=== PATIENT | female | born 1985 | race Caucasian/White ===

== ENCOUNTER → 2017-10-18 | Outpatient (CLI) | payer OTHER ==
[~2017-10-18] MED LIST: CYCL10TA9 PO; HYDR-3714 PO; IBP800T PO; MINO90TA9 PO; PRD20T PO; SUMA100T2 PO; [UNRECOGNIZED DRUG - CODE]
--- NOTE | 2017-10-18 16:53 | Diagnostic Imaging Report ---
INDICATION: Anatomical survey. TECHNIQUE: Multiple real-time grayscale images were obtained over the gravid uterus. COMPARISON: None FINDINGS: Mccann gestation is in cephalic position. The placenta is anterior with no abruption or previa. Amniotic fluid volume appeared normal. The cervix measures at least 3.5 cm. The anatomical survey revealed no pathology. The measurements correlate with an average age of 19 weeks 6 days for sonographic date of confinement of 03/04/2018. IMPRESSION: 19 weeks 6 days mccann viable IUP with no pathological finding revealed. Biometrical measurements are as follows: Biparietal 4.6 cm, age 19 weeks 6 days. Head circumference 17.0 cm, age 19 weeks 5 days. Abdominal circumference 14.0 cm, age 19 weeks 3 days. Femur length 3.3 cm, age 20 weeks 3 days. Sonographic estimate age: 19 weeks 6 days. Sonographic estimated date of delivery: 03/08/18. Estimated Weight: 316 gm (+/- 46 gm). LMP percentile: 17%. heart rate: 143 beats per minute. number: 1 of 1. Dictated by: Dictated on workstation # [id number]
== END ==
LOC: RAD 12:46
PROVIDERS: ATTEND Obstetrics & Gynecology
DX: Z34.92 Encounter for supervision of normal pregnancy, unspecified, second trimester (principal); Z3A.19 19 weeks gestation of pregnancy
CPT/HCPCS: 76805

== ENCOUNTER 2018-02-21 18:45 | Inpatient (IN) | payer OTHER ==
[~2018-02-21] VITALS: Ht 177.8 cm; Wt 117.0 kg
--- OUTSIDE RECORDS SUMMARY | 2018-02-21 18:55 | XMS REPORT | Continuity of Care Document ---
Author Author [facility] Organization [facility] Address Unknown Phone Unavailable Allergies Active Description Code Type Severity Reaction Onset Reported/Identified Relationship to Patient Clinical Status Yes No Known Drug Allergies [id number] Drug Allergy Mild N/A 07/11/2009 Medications There is no data. Problems Date Dx Coded Attending Type Code Diagnosis Diagnosed By 10/17/2014 OSVALDO MORRISON MD Ot 625.3 10/17/2014 NATHALY HERNÁNDEZ, NILESH Jones Ot 724.2 LUMBAGO 11/20/2014 OSVALDO MORRISON MD Ot 625.3 03/21/2015 KIM BAXTER DO Ot 278.00 03/21/2015 KIM BAXTER DO Ot 628.0 03/21/2015 KIM BAXTER DO S Ot V13.29 04/12/2016 BRYAN HERNÁNDEZ, HAL Ballesteros Ot N97.8 FEMALE INFERTILITY OF OTHER ORIGIN 04/30/2016 BRYAN HERNÁNDEZ, HAL Ballesteros Ot N97.8 FEMALE INFERTILITY OF OTHER ORIGIN 06/21/2016 OSVALDO MORRISON MD Ot 625.3 DYSMENORRHEA 06/21/2016 KIM BAXTER DO S Ot 278.00 OBESITY, NOS 06/21/2016 KIM BAXTER DO S Ot 628.0 INFERTILITY-ANOVULATION 06/21/2016 KIM BAXTER DO S Ot V13.29 PERSONAL HISTORY GENITAL SYSTEM/OBSTETRI 03/03/2017 OSVALDO MORRISON MD Ot 625.3 DYSMENORRHEA 03/03/2017 KIM BAXTER DO S Ot 278.00 OBESITY, NOS 03/03/2017 KIM BAXTER DO S Ot 628.0 INFERTILITY-ANOVULATION 03/03/2017 KIM BAXTER DO S Ot V13.29 PERSONAL HISTORY GENITAL SYSTEM/OBSTETRI 10/19/2017 KIM BAXTER DO S Ot Z34.92 ENCNTR FOR SUPRVSN OF NORMAL PREG, UNSP, 10/19/2017 KIM BAXTER DO Ot Z3A.19 19 WEEKS GESTATION OF 10/19/2017 KIM BAXTER DO Ot Z34.92 ENCNTR FOR SUPRVSN OF NORMAL PREG, UNSP, 10/19/2017 KIM BAXTER DO Ot Z3A.19 19 WEEKS GESTATION OF 11/03/2017 KIM BAXTER DO Ot Z34.92 ENCNTR FOR SUPRVSN OF NORMAL PREG, UNSP, 11/03/2017 KIM BAXTER DO Ot Z3A.19 19 WEEKS GESTATION OF Procedures There is no data. Results There is no data. Encounters ACCT No. Visit Date/Time Discharge Status Pt. Type Provider Facility Loc./Unit Complaint [id number] 10/18/2017 12:46:00 10/18/2017 23:59:59 CLS Outpatient KIM BAXTER DO [facility] RAD ANATOMY SCAN [id number] 03/30/2016 12:44:00 03/30/2016 23:59:59 CLS Outpatient BRYAN HERNÁNDEZ, HAL Ballesteros [facility] RAD [id number] 03/07/2015 13:54:00 03/07/2015 23:59:59 CLS Outpatient KIM BAXTER DO [facility] RAD HX OF PCOS ANOVULATION [id number] 10/17/2014 07:59:00 10/17/2014 08:51:00 DIS Emergency NATHALY HERNÁNDEZ, NILESH Jones [facility] ER BACK PAIN [id number] 09/26/2014 15:59:00 09/26/2014 23:59:59 CLS Outpatient OSVALDO MORRISON MD [facility] RAD CHRONIC PELVIC PAIN
[2018-02-21] MEDS ORDERED: MINERAL OIL CONCENTRATE 99.9% 15 ML UDC TOP PRN (19:30)
[2018-02-21] MEDS ORDERED: MISOPROSTOL 100 MCG (CYTOTEC) TAB PO NR (19:30)
[2018-02-21 19:45] VITALS: BP 121/78
[2018-02-21] MEDS: D5 LR IV SOLUTION 1,000 ML IV SCH (20:08)
[2018-02-21 20:11] LABS: BASOPHILS % (AUTO) 0 % (0-10); EOSINOPHILS # (AUTO) 0.2 10^3/uL (0.0-0.3); EOSINOPHILS % (AUTO) 1 % (0-10); HEMATOCRIT 34 % (35-52); HEMOGLOBIN 12.3 G/DL (11.5-16.0); LYMPHOCYTES # (AUTO) 2.1 X 10^3 (1.0-4.0); LYMPHOCYTES % (AUTO) 19 % (12-44); MEAN CORPUSCULAR HEMOGLOBIN 30 PG (25-34); MEAN CORPUSCULAR HGB CONC 36 G/DL (32-36); MEAN CORPUSCULAR VOLUME 82 FL (80-99); MEAN PLATELET VOLUME 11.4 FL (7.4-10.4); MONOCYTES # (AUTO) 0.5 X 10^3 (0.0-1.0); MONOCYTES % (AUTO) 4 % (0-12); NEUTROPHILS # (AUTO) 8.4 X 10^3 (1.8-7.8); NEUTROPHILS % (AUTO) 76 % (42-75); PLATELET COUNT 224 10^3/uL (130-400); RED BLOOD COUNT 4.16 10^6/uL (4.35-5.85); RED CELL DISTRIBUTION WIDTH 12.9 % (10.0-14.5); WHITE BLOOD COUNT 11.1 10^3/uL (4.3-11.0)
[2018-02-21 20:52] VITALS: BP 137/85
[2018-02-21 21:21] VITALS: BP 127/74
[2018-02-21 22:22] VITALS: BP 134/72
[2018-02-21 23:22] VITALS: BP 157/81
[2018-02-22] VITALS (60 sets, daily range): BP systolic 116–197; BP diastolic 58–106
[2018-02-22] MEDS: MISOPROSTOL 100 MCG (CYTOTEC) TAB PO SCH ×2 (00:12→05:16)
[2018-02-22] MEDS: D5 LR IV SOLUTION 1,000 ML IV SCH ×2 (01:55→09:39)
[2018-02-22] MEDS: CATHETER FLUSH 10 ML SYR IV SCH ×2 (05:28→14:22)
--- NOTE | 2018-02-22 08:14 | History & Physical-OB ---
OB - Chief Complaint & HPI Date/Time Date of Admission: Date of Admission: Feb 21, 2018 at 6:45 pm Time Seen by Provider: 07:55 Chief Complaint/History OB-Reason for Admission/Chief: Induction of Labor Hx : 1 Hx Para: 0 Expected Date of Delivery: Mar 04, 2018 Gestational Age in Weeks: 38 Gestational Age in Days: 4 Admission Nurse Assessment Rev: Yes History of Labs AB neg Antibody neg RI RPR NR HBsAg NR HIV NR GC neg GBS neg Allergies and Home Medications Allergies Coded Allergies: No Known Drug Allergies (Verified , 07/11/09) Patient Home Medication List Home Medication List Reviewed: Yes OB - History Hx of Present Care: Yes Ultrasounds: Abnormal US findings (oligohydramnios) Obstetrical Complications: None (abnormal quad screen) Medical Complications: None Delivery History Adverse Rxn to Tranfusion: No Patient Past Medical History n/a Social History/Family History HIV/AIDS: Yes Recent Infectious Disease Expo: No Sexually Transmitted Disease: No Alcohol Use: Denies Use Recreational Drug Use: No Immunizations Hepatitis A: Yes Hepatitis B: Yes OB - Admission Exam Physical Exam Vitals: Vital Signs 02/22/18 02/22/18 04:06 06:20 Temp 96.8 Pulse 62 Resp 18 B/P (MAP) 133/79 (97) O2 Delivery Room Air HEENT: NCAT Heart: Rhythm Normal Lungs: Clear Abdomen: Gravid Extremities: Normal Reflexes: Normal Cervical Dilatation: 1cm Effacement: 75% Station: -1 Membranes: Intact Heart Rate: 130's Accelerations: Accelerations Present Decelerations: No Decelerations Short Term Variability: Present Cleaning Machine Operator Variability: Average (6-25) Contractions on Admission: 6-10 Minutes Apart Intensity: Mild Royal Scoring Tool (Modified) Dilation (cm): 1-2cm (1) Effacement (%): 51-79% (2) Descent/Station: -1,0 (2) Cervix Consistency: Soft (2) Cervix Position: Anterior (2) Subtract 1 point for: Nulliparity (-1) Royal Score: 8 Labs Laboratory Tests Test 02/21/18 19:55 Range/Units White Blood Count 11.1 H 4.3-11.0 10^3/uL Red Blood Count 4.16 L 4.35-5.85 10^6/uL Hemoglobin 12.3 11.5-16.0 G/DL Hematocrit 34 L 35-52 % Mean Corpuscular Volume 82 80-99 FL Mean Corpuscular Hemoglobin 30 25-34 PG Mean Corpuscular Hemoglobin Concent 36 32-36 G/DL Red Cell Distribution Width 12.9 10.0-14.5 % Platelet Count 224 130-400 10^3/uL Mean Platelet Volume 11.4 H 7.4-10.4 FL Neutrophils (%) (Auto) 76 H 42-75 % Lymphocytes (%) (Auto) 19 12-44 % Monocytes (%) (Auto) 4 0-12 % Eosinophils (%) (Auto) 1 0-10 % Basophils (%) (Auto) 0 0-10 % Neutrophils # (Auto) 8.4 H 1.8-7.8 X 10^3 Lymphocytes # (Auto) 2.1 1.0-4.0 X 10^3 Monocytes # (Auto) 0.5 0.0-1.0 X 10^3 Eosinophils # (Auto) 0.2 0.0-0.3 10^3/uL Basophils # (Auto) 0.0 0.0-0.1 10^3/uL OB - Assessment/Plan/Diagnosis Assessment Assessment: induction of labor Admission Dx 32 yo @ 38.4 weeks Oligohydramnios Abnormal quad screen GBS neg Admission Status: Inpatient Order (span 2 midnights) Reason for Inpatient Admission: 32 yo @ 38.4 weeks Oligohydramnios Abnormal quad screen GBS neg Plan Plan: Induction Induction Method: per Misoprostol Protocol Discharge Diagnosis Diagnosis: 32 yo @ 38.4 weeks Oligohydramnios Abnormal quad screen GBS neg KIM BAXTER DO Feb 22, 2018 8:14 am
[2018-02-22] MEDS ORDERED: OXYTOCIN/NORMAL SALINE 500 ML IV SCH ×2 (08:43→17:54)
[2018-02-22] MEDS ORDERED: LACTATED RINGERS 1,000 ML IV ONE (11:08)
[2018-02-22] MEDS ORDERED: SUFENTA 0.6MCG/ML BUPIVA 0.125 100 ML ONE (11:09)
[2018-02-22] MEDS ORDERED: LIDOCAINE PF 2% 5 ML (XYLOCAINE) VIAL ONE (11:55)
[2018-02-22] MEDS ORDERED: BUPIVACAINE 0.25% 30 ML (SENSORCAINE) VIAL ONE (11:55)
[2018-02-22] MEDS ORDERED: fentaNYL INJECTION 100 MCG/2 ML AMP ONE (11:56)
[2018-02-22] MEDS ORDERED: LACTATED RINGERS 1,000 ML IV SCH (12:29)
[2018-02-22] MEDS ORDERED: diphenhydrAMINE 50 MG/ML INJ (BENADRYL) IV PRN (12:30)
[2018-02-22] MEDS ORDERED: NALOXONE 0.4 MG/ML 1 ML (NARCAN) VIAL IV PRN (12:30)
[2018-02-22] MEDS ORDERED: EPIDURAL (SUFENTA 0.6MCG/ML BUPIVA 0.125%) 100 ML BAG EPI PRN (12:30)
[2018-02-22] MEDS ORDERED: ONDANSETRON 4 MG/2 ML (SDV) Z0FRAN IV PRN (12:30)
[2018-02-22] MEDS ORDERED: LIDOCAINE/EPI 2% 1:200,00 (XYLOCAINE) 10 ML VIAL ONE (17:25)
--- NOTE | 2018-02-22 17:58 | OB Labor & Delivery Record ---
L&D History Date of Service Date of Service: Feb 22, 2018 History Expected Date of Delivery: Mar 04, 2018 Gestational Age in Weeks: 38 Hx : 1 Hx Para: 0 Complications Events: Oliohydramnios, Routine care (Julius) Abn Quad screen Intrapartal Events: None L&D Stage1 Stage One Onset of Labor - Date: Feb 22, 2018 Monitors and Tracing Monitor Mode: External Heart Rate: 135 Station: 0 Vital Signs VS - Last 72 Hours, by Label 02/21/18 02/21/18 02/21/18 02/21/18 19:45 20:52 21:21 22:22 Temp 97.6 Pulse 66 62 63 55 Resp 18 18 18 18 B/P (MAP) 121/78 (92) 137/85 (102) 127/74 (91) 134/72 (92) 02/21/18 02/21/18 02/22/18 02/22/18 23:00 23:22 00:16 00:22 Temp 97.0 96.4 Pulse 60 68 59 Resp 16 18 16 16 B/P (MAP) 157/81 (106) 141/67 (91) 132/74 (93) 02/22/18 02/22/18 02/22/18 02/22/18 01:22 02:08 04:06 04:08 Temp 96.8 Pulse 72 64 72 70 Resp 16 16 18 18 B/P (MAP) 118/80 (93) 139/80 (99) 169/82 (111) 169/72 (104) O2 Delivery Room Air Room Air Room Air Room Air 02/22/18 02/22/18 02/22/18 02/22/18 04:17 05:17 06:20 07:20 Pulse 56 65 62 57 Resp 18 18 18 18 B/P (MAP) 151/84 (106) 138/84 (102) 133/79 (97) 142/84 (103) O2 Delivery Room Air Room Air Room Air Room Air 02/22/18 02/22/18 02/22/18 02/22/18 07:30 08:20 09:35 09:50 Temp 96.4 Pulse 61 71 65 Resp 18 18 18 B/P (MAP) 157/86 (109) 150/85 (106) 150/84 (106) O2 Delivery Room Air Room Air Room Air 02/22/18 02/22/18 02/22/18 02/22/18 10:05 10:30 10:45 11:00 Pulse 68 60 59 75 Resp 18 18 18 18 B/P (MAP) 167/87 (113) 154/79 (104) 172/96 (121) 159/96 (117) O2 Delivery Room Air Room Air Room Air Room Air 02/22/18 02/22/18 02/22/18 02/22/18 11:15 11:30 11:45 12:00 Pulse 70 61 66 71 Resp 18 18 18 18 B/P (MAP) 197/103 (134) 181/84 (116) 160/85 (110) 160/76 (104) O2 Delivery Room Air Room Air Room Air Room Air 02/22/18 02/22/18 02/22/18 02/22/18 12:02 12:03 12:07 12:10 Pulse 74 69 67 60 Resp 18 18 20 20 B/P (MAP) 150/84 (106) 156/97 (116) 165/106 (125) 155/96 (115) Pulse Ox 100 100 O2 Delivery Room Air Room Air Room Air Room Air 02/22/18 02/22/18 02/22/18 02/22/18 12:13 12:20 12:24 12:30 Temp 97.8 Pulse 57 65 76 57 Resp 18 20 20 18 B/P (MAP) 157/96 (116) 155/89 (111) 139/71 (93) 157/96 (116) Pulse Ox 100 100 100 100 O2 Delivery Room Air Room Air Room Air Room Air 02/22/18 02/22/18 02/22/18 02/22/18 12:35 12:40 13:00 13:15 Pulse 65 76 68 67 Resp 18 18 18 18 B/P (MAP) 122/61 (81) 128/69 (88) 128/66 (86) 132/67 (88) Pulse Ox 100 100 100 100 O2 Delivery Room Air Room Air Room Air Room Air 02/22/18 02/22/18 02/22/18 02/22/18 13:30 13:37 13:45 14:00 Temp 97.2 Pulse 75 64 62 Resp 18 18 18 B/P (MAP) 127/66 (86) 122/58 (79) 124/62 (82) Pulse Ox 100 100 99 O2 Delivery Room Air Room Air Room Air 02/22/18 02/22/18 02/22/18 02/22/18 14:15 14:30 14:45 15:00 Pulse 68 65 64 69 Resp 18 18 18 18 B/P (MAP) 124/62 (82) 125/64 (84) 121/63 (82) 122/70 (87) Pulse Ox 99 99 100 100 O2 Delivery Room Air Room Air Room Air Room Air 02/22/18 02/22/18 02/22/18 15:15 15:30 15:45 Pulse 67 66 63 Resp 18 18 18 B/P (MAP) 146/73 (97) 140/75 (96) 146/73 (97) Pulse Ox 100 100 100 O2 Delivery Room Air Room Air Room Air Rupture of Membranes Spontaneous Ruture of Membrane: No Amniotic Membrane Rupture Time: 0805 Amniotic Membrane Fluid Desc.: Clear Vaginal Bleeding Description: Normal Show Induction/Anesthesia Epidural Cath Placement - Time: 1219 L&D Stage2 Stage Two Stage II Date: Feb 22, 2018 Monitors and Tracing Monitor Mode: External Heart Rate: 135 Monitor Accelerations: Uniform Monitor Decelerations: Variable Assurance Senior Variability: Average (6-10) Short Term Variability: Present Position: Right Occiput Anterior Presentation: Vertex Cord Descript/Complications Cord Vessel Description: 3 Vessels Delivery Type Infant Delivery Method: Spontaneous Vaginal Anterior Shoulder: Left Episiotomy/Perineal Laceration Laceraction(s)/Extensions: Yes Episiotomy Description: Right Mediolateral Degree (describe repair) RML repaired in usual fashion using 3-0 and 2-0 vicryl suture Condition of Infant Delivery 1 minute Comment: 8 5 minute Comment: 9 Notes Live female infant weight 5lbs 1 oz Condition of Condition of Infant: Living Exam: No Observed Abnormalities Resuscitation Resuscitation: N/A - Spontaneous Resp L&D Stage3 Stage Three Stage III Date: Feb 22, 2018 Pictocin Pitocin Administration mu/min: 12 Pitocin ml/hr: 12 Pitocin Administration Comment: pitocin increased wide open at delivery of placenta Placenta Delivery Placenta Delivery: Spontaneous Delivery Summary Summary Estimated blood loss (mL): 300 Attending at delivery: Kim Baxter DO Condition of Delivery Examined: Cervix Examined, Uterus Explored Post Hemorrhage: No Condition of Mother stable Condition of Infant (s) stable KIM BAXTER DO Feb 22, 2018 5:57 pm
[2018-02-22] MEDS ORDERED: BENZOCAINE/MENTHOL (DERMOPLAST) 56 ML CAN TP PRN (18:00)
[2018-02-22] MEDS ORDERED: DIBUCAINE (NUPERCAINAL) 1% OINT 30 GM TOP PRN (18:00)
[2018-02-22] MEDS ORDERED: MEASLES,MUMPS,RUBELLA 1 EA INJ SQ ONE (18:00)
[2018-02-22] MEDS ORDERED: TETANUS,DIPTH,PERTUSS P/F (BOOSTRIX) 0.5 ML VIAL IM ONE (18:00)
[2018-02-22] MEDS: IBUPROFEN 600 MG (MOTRIN) TAB PO SCH (20:01)
[2018-02-22] MEDS: HYDROcodone/APAP 5 MG/325 MG (LORTAB) TAB PO PRN (20:11)
[2018-02-23] MEDS: WITCH HAZEL(TUCKS) 40 EA JAR TOP PRN ×2 (00:11→23:24)
[2018-02-23 00:22] VITALS: BP 142/81
[2018-02-23] MEDS: DOCUSATE SODIUM 100 MG (COLACE) CAP PO SCH ×3 (00:22→21:08)
[2018-02-23 04:54] VITALS: BP 127/86
[2018-02-23] MEDS: IBUPROFEN 600 MG (MOTRIN) TAB PO SCH ×5 (04:54→23:23)
[2018-02-23 05:49] LABS: BASOPHILS % (AUTO) 0 % (0-10); EOSINOPHILS # (AUTO) 0.1 10^3/uL (0.0-0.3); EOSINOPHILS % (AUTO) 1 % (0-10); HEMATOCRIT 33 % (35-52); HEMOGLOBIN 11.5 G/DL (11.5-16.0); LYMPHOCYTES # (AUTO) 2.2 X 10^3 (1.0-4.0); LYMPHOCYTES % (AUTO) 20 % (12-44); MEAN CORPUSCULAR HEMOGLOBIN 30 PG (25-34); MEAN CORPUSCULAR HGB CONC 35 G/DL (32-36); MEAN CORPUSCULAR VOLUME 84 FL (80-99); MEAN PLATELET VOLUME 11.3 FL (7.4-10.4); MONOCYTES # (AUTO) 0.5 X 10^3 (0.0-1.0); MONOCYTES % (AUTO) 5 % (0-12); NEUTROPHILS # (AUTO) 8.2 X 10^3 (1.8-7.8); NEUTROPHILS % (AUTO) 74 % (42-75); PLATELET COUNT 184 10^3/uL (130-400); RED BLOOD COUNT 3.89 10^6/uL (4.35-5.85); RED CELL DISTRIBUTION WIDTH 12.9 % (10.0-14.5)
--- NOTE | 2018-02-23 07:20 | Discharge Inst-Women's Service ---
Discharge Inst-Women's Serv Depart Medication/Instructions New, Converted or Re-Newed RX: RX on Chart Consults/Follow Up Additional Follow Up: Yes Orders/Referrals Dr. Baxter in 6 weeks Activity Activity: Activity as Tolerated Driving Instructions: No Driving for 1 Week NO SMOKING: NO SMOKING Nothing Inside Vagina: No Douching, No [place], No Tampons Diet Discharge Diet: No Restrictions Symptoms to Report to : Bleeding Excessive, Pain Increased, Fever Over 101 Degrees F, Vaginal Bleeding Increase, Questions/Concerns For Any Problems or Questions: Contact Your Physician Skin/Wound Care Bathing Instructions: Shower (x 2 weeks or sitz baths) KIM BAXTER DO Feb 23, 2018 7:20 am
[2018-02-23] MEDS ORDERED: DOCU100C37 PO (07:22)
[2018-02-23] MEDS ORDERED: Benzocaine/Menthol TP (07:22)
[2018-02-23] MEDS ORDERED: ACHD5005 PO (07:22)
[2018-02-23] MEDS ORDERED: DIBU30OI TOP (07:22)
[2018-02-23] MEDS ORDERED: PNV1TABL67 PO (07:22)
[2018-02-23] MEDS ORDERED: IBUP-1773 PO (07:22)
[2018-02-23] MEDS ORDERED: FERR325T18 PO (07:22)
--- NOTE | 2018-02-23 07:23 | Postpartum Progress Note ---
Note Note Day # 1 Subjective: Patient is without complaints. Ambulating, voiding. Tolerating a regular diet without nausea or vomiting. Normal lochia. Pain is well controlled with oral pain medications. Objective: Vital Sign - Last 24 Hours 02/22/18 02/22/18 02/22/18 02/22/18 07:30 08:20 09:35 09:50 Temp 96.4 Pulse 61 71 65 Resp 18 18 18 B/P (MAP) 157/86 (109) 150/85 (106) 150/84 (106) O2 Delivery Room Air Room Air Room Air 02/22/18 02/22/18 02/22/18 02/22/18 10:05 10:30 10:45 11:00 Pulse 68 60 59 75 Resp 18 18 18 18 B/P (MAP) 167/87 (113) 154/79 (104) 172/96 (121) 159/96 (117) O2 Delivery Room Air Room Air Room Air Room Air 02/22/18 02/22/18 02/22/18 02/22/18 11:15 11:30 11:45 12:00 Pulse 70 61 66 71 Resp 18 18 18 18 B/P (MAP) 197/103 (134) 181/84 (116) 160/85 (110) 160/76 (104) O2 Delivery Room Air Room Air Room Air Room Air 02/22/18 02/22/18 02/22/18 02/22/18 12:02 12:03 12:07 12:10 Pulse 74 69 67 60 Resp 18 18 20 20 B/P (MAP) 150/84 (106) 156/97 (116) 165/106 (125) 155/96 (115) Pulse Ox 100 100 O2 Delivery Room Air Room Air Room Air Room Air 02/22/18 02/22/18 02/22/18 02/22/18 12:13 12:20 12:24 12:30 Temp 97.8 Pulse 57 65 76 57 Resp 18 20 20 18 B/P (MAP) 157/96 (116) 155/89 (111) 139/71 (93) 157/96 (116) Pulse Ox 100 100 100 100 O2 Delivery Room Air Room Air Room Air Room Air 02/22/18 02/22/18 02/22/18 02/22/18 12:35 12:40 13:00 13:15 Pulse 65 76 68 67 Resp 18 18 18 18 B/P (MAP) 122/61 (81) 128/69 (88) 128/66 (86) 132/67 (88) Pulse Ox 100 100 100 100 O2 Delivery Room Air Room Air Room Air Room Air 02/22/18 02/22/18 02/22/18 02/22/18 13:30 13:37 13:45 14:00 Temp 97.2 Pulse 75 64 62 Resp 18 18 18 B/P (MAP) 127/66 (86) 122/58 (79) 124/62 (82) Pulse Ox 100 100 99 O2 Delivery Room Air Room Air Room Air 02/22/18 02/22/18 02/22/18 02/22/18 14:15 14:30 14:45 15:00 Pulse 68 65 64 69 Resp 18 18 18 18 B/P (MAP) 124/62 (82) 125/64 (84) 121/63 (82) 122/70 (87) Pulse Ox 99 99 100 100 O2 Delivery Room Air Room Air Room Air Room Air 02/22/18 02/22/18 02/22/18 02/22/18 15:15 15:30 15:45 16:00 Pulse 67 66 63 73 Resp 18 18 18 18 B/P (MAP) 146/73 (97) 140/75 (96) 146/73 (97) Pulse Ox 100 100 100 100 O2 Delivery Room Air Room Air Room Air Room Air 02/22/18 02/22/18 02/22/18 02/22/18 16:15 16:25 16:30 16:45 Temp 97.4 Pulse 69 65 73 Resp 18 18 18 B/P (MAP) 150/85 (106) 170/80 (110) 161/78 (105) Pulse Ox 100 100 98 O2 Delivery Room Air Room Air Room Air 02/22/18 02/22/18 02/22/18 02/22/18 17:00 17:15 17:30 18:00 Pulse 81 81 81 85 Resp 18 18 18 18 B/P (MAP) 175/81 (112) 177/89 (118) 161/89 (113) 122/60 (80) Pulse Ox 100 100 100 O2 Delivery Room Air Room Air Room Air Room Air 4/4/18 4/4/18 4/4/18 4/4/18 18:15 18:30 18:45 19:00 Pulse 73 75 83 90 Resp 18 B/P (MAP) 116/58 (77) 120/58 (78) 136/64 (88) 149/65 (93) O2 Delivery Room Air Room Air Room Air Room Air 02/22/18 02/22/18 02/22/18 02/22/18 20:00 20:15 20:45 21:15 Temp 98.5 98.0 Pulse 93 78 69 73 Resp 18 B/P (MAP) 123/76 (92) 130/70 (90) 124/67 (86) 132/59 (83) O2 Delivery Room Air Room Air Room Air Room Air 02/22/18 02/22/18 02/23/18 02/23/18 21:45 22:15 00:22 04:54 Temp 97.5 98.2 98.4 Pulse 87 75 70 72 Resp 18 B/P (MAP) 132/74 (93) 143/73 (96) 142/81 (101) 127/86 (100) Pulse Ox 100 100 O2 Delivery Room Air Room Air Room Air Room Air Intake and Output 02/22/18 02/22/18 02/23/18 15:00 23:00 07:00 Intake Total 1000 ml Balance 1000 ml Laboratory Tests Test 02/23/18 05:15 Range/Units White Blood Count 11.0 4.3-11.0 10^3/uL Red Blood Count 3.89 L 4.35-5.85 10^6/uL Hemoglobin 11.5 11.5-16.0 G/DL Hematocrit 33 L 35-52 % Mean Corpuscular Volume 84 80-99 FL Mean Corpuscular Hemoglobin 30 25-34 PG Mean Corpuscular Hemoglobin Concent 35 32-36 G/DL Red Cell Distribution Width 12.9 10.0-14.5 % Platelet Count 184 130-400 10^3/uL Mean Platelet Volume 11.3 H 7.4-10.4 FL Neutrophils (%) (Auto) 74 42-75 % Lymphocytes (%) (Auto) 20 12-44 % Monocytes (%) (Auto) 5 0-12 % Eosinophils (%) (Auto) 1 0-10 % Basophils (%) (Auto) 0 0-10 % Neutrophils # (Auto) 8.2 H 1.8-7.8 X 10^3 Lymphocytes # (Auto) 2.2 1.0-4.0 X 10^3 Monocytes # (Auto) 0.5 0.0-1.0 X 10^3 Eosinophils # (Auto) 0.1 0.0-0.3 10^3/uL Basophils # (Auto) 0.0 0.0-0.1 10^3/uL Physical Exam: General - Alert and oriented, no apparent distress Abdomen - Soft, appropriately tender to palpation, non-distended, fundus firm at umbilicus Extremities - no edema, negative Pao's bilaterally Assessment: PPD 1 NVD Oligohydramnios Plan: Routine care. Encourage breast feeding. Encourage ambulation. Ferrous sulfate supplementation. Plan for discharge tomorrow Vitals - Labs Vital Signs - I&O Vital Signs Date Time Temp Pulse Resp B/P (MAP) Pulse Ox O2 Delivery O2 Flow Rate FiO2 02/23/18 04:54 98.4 72 18 127/86 (100) 100 Room Air 02/23/18 00:22 98.2 70 18 142/81 (101) 100 Room Air 02/22/18 22:15 97.5 75 18 143/73 (96) Room Air 02/22/18 21:45 87 18 132/74 (93) Room Air 02/22/18 21:15 98.0 73 18 132/59 (83) Room Air 02/22/18 20:45 69 18 124/67 (86) Room Air 02/22/18 20:15 78 18 130/70 (90) Room Air 02/22/18 20:00 98.5 93 18 123/76 (92) Room Air 02/22/18 19:00 90 18 149/65 (93) Room Air 02/22/18 18:45 83 18 136/64 (88) Room Air 02/22/18 18:30 75 18 120/58 (78) Room Air 02/22/18 18:15 73 18 116/58 (77) Room Air 02/22/18 18:00 85 18 122/60 (80) Room Air 02/22/18 17:30 81 18 161/89 (113) 100 Room Air 02/22/18 17:15 81 18 177/89 (118) 100 Room Air 02/22/18 17:00 81 18 175/81 (112) 100 Room Air 02/22/18 16:45 73 18 161/78 (105) 98 Room Air 02/22/18 16:30 65 18 170/80 (110) 100 Room Air 02/22/18 16:25 97.4 02/22/18 16:15 69 18 150/85 (106) 100 Room Air 02/22/18 16:00 73 18 100 Room Air 02/22/18 15:45 63 18 146/73 (97) 100 Room Air 02/22/18 15:30 66 18 140/75 (96) 100 Room Air 02/22/18 15:15 67 18 146/73 (97) 100 Room Air 02/22/18 15:00 69 18 122/70 (87) 100 Room Air 02/22/18 14:45 64 18 121/63 (82) 100 Room Air 02/22/18 14:30 65 18 125/64 (84) 99 Room Air 02/22/18 14:15 68 18 124/62 (82) 99 Room Air 02/22/18 14:00 62 18 124/62 (82) 99 Room Air 02/22/18 13:45 64 18 122/58 (79) 100 Room Air 02/22/18 13:37 97.2 02/22/18 13:30 75 18 127/66 (86) 100 Room Air 02/22/18 13:15 67 18 132/67 (88) 100 Room Air 02/22/18 13:00 68 18 128/66 (86) 100 Room Air 02/22/18 12:40 76 18 128/69 (88) 100 Room Air 02/22/18 12:35 65 18 122/61 (81) 100 Room Air 02/22/18 12:30 97.8 57 18 157/96 (116) 100 Room Air 02/22/18 12:24 76 20 139/71 (93) 100 Room Air 02/22/18 12:20 65 20 155/89 (111) 100 Room Air 02/22/18 12:13 57 18 157/96 (116) 100 Room Air 02/22/18 12:10 60 20 155/96 (115) 100 Room Air 02/22/18 12:07 67 20 165/106 (125) 100 Room Air 02/22/18 12:03 69 18 156/97 (116) Room Air 02/22/18 12:02 74 18 150/84 (106) Room Air 02/22/18 12:00 71 18 160/76 (104) Room Air 02/22/18 11:45 66 18 160/85 (110) Room Air 02/22/18 11:30 61 18 181/84 (116) Room Air 02/22/18 11:15 70 18 197/103 (134) Room Air 02/22/18 11:00 75 18 159/96 (117) Room Air 02/22/18 10:45 59 18 172/96 (121) Room Air 02/22/18 10:30 60 18 154/79 (104) Room Air 02/22/18 10:05 68 18 167/87 (113) Room Air 02/22/18 09:50 65 18 150/84 (106) Room Air 02/22/18 09:35 71 18 150/85 (106) Room Air 02/22/18 08:20 61 18 157/86 (109) Room Air 02/22/18 07:30 96.4 I & O 02/23/18 07:00 Intake Total 1000 ml Balance 1000 ml Labs Laboratory Tests 02/23/18 05:15: White Blood Count 11.0, Red Blood Count 3.89L, Hemoglobin 11.5, Hematocrit 33L, Mean Corpuscular Volume 84, Mean Corpuscular Hemoglobin 30, Mean Corpuscular Hemoglobin Concent 35, Red Cell Distribution Width 12.9, Platelet Count 184, Mean Platelet Volume 11.3H, Neutrophils (%) (Auto) 74, Lymphocytes (%) (Auto) 20 , Monocytes (%) (Auto) 5, Eosinophils (%) (Auto) 1, Basophils (%) (Auto) 0, Neutrophils # (Auto) 8.2H, Lymphocytes # (Auto) 2.2, Monocytes # (Auto) 0.5, Eosinophils # (Auto) 0.1, Basophils # (Auto) 0.0 KIM BAXTER DO Feb 23, 2018 7:23 am
[2018-02-23 09:45] VITALS: BP 128/86
[2018-02-23] MEDS: PRENATAL VITAMIN 1 EA TAB PO SCH (10:27)
[2018-02-23] MEDS: FERROUS SULF 325 MG (IRON) TAB PO SCH (10:27)
[2018-02-23 12:30] VITALS: BP 128/86
--- NOTE | 2018-02-23 12:50 | Anesthesia-Regional Post-Op ---
Regional Patient Condition Mental Status: Alert, Oriented x3 Circulation: Same as Pre-Op Headache: Absent Sensation: Full Recovery Motor Block: Absent Post Op Complications Complications None Follow Up Care/Instructions Patient Instructions None needed. Anesthesia/Patient Condition Patient is doing well, no complaints, stable vital signs, no apparent adverse anesthesia problems. No complications reported per nursing. MARCOS ALLEN CRNA Feb 23, 2018 12:50
[2018-02-23] MEDS: HYDROcodone/APAP 5 MG/325 MG (LORTAB) TAB PO PRN ×2 (14:42→23:25)
[2018-02-23 17:00] VITALS: BP 135/87
[2018-02-23] MEDS: CATHETER FLUSH 10 ML SYR IV SCH ×4 (19:44→19:46)
[2018-02-23] MEDS: D5 LR IV SOLUTION 1,000 ML IV SCH ×2 (19:46→19:47)
[2018-02-23 23:38] VITALS: BP 136/89
[2018-02-24] MEDS: IBUPROFEN 600 MG (MOTRIN) TAB PO SCH ×3 (05:42→18:20)
[2018-02-24] MEDS: HYDROcodone/APAP 5 MG/325 MG (LORTAB) TAB PO PRN (05:47)
[2018-02-24 05:54] VITALS: BP 136/94
[2018-02-24 09:00] VITALS: BP 148/85
--- NOTE | 2018-02-24 09:15 | Postpartum Progress Note ---
Note Note Day # 2 Subjective: Patient is without complaints. Ambulating, voiding. Tolerating a regular diet without nausea or vomiting. Normal lochia. Pain is well controlled with oral pain medications. Attempting to breastfeed Objective: Vital Sign - Last 24 Hours 02/23/18 02/23/18 02/23/18 02/23/18 09:45 12:30 17:00 23:38 Temp 98.4 98.0 98.3 97.7 Pulse 81 72 67 76 Resp 16 20 16 18 B/P (MAP) 128/86 (100) 128/86 (100) 135/87 (103) 136/89 (105) Pulse Ox 100 100 100 100 O2 Delivery Room Air Room Air Room Air Room Air 02/24/18 05:54 Temp 96.8 Pulse 72 Resp 18 B/P (MAP) 136/94 (108) Pulse Ox 100 O2 Delivery Room Air Physical Exam: General - Alert and oriented, no apparent distress Abdomen - Soft, appropriately tender to palpation, non-distended, fundus firm at umbilicus Extremities - no edema, negative Pao's bilaterally Assessment: PPD 2 NVD Plan: Routine care. Encourage breast feeding. Encourage ambulation. Ferrous sulfate supplementation. Plan for discharge today Vitals - Labs Vital Signs - I&O Vital Signs Date Time Temp Pulse Resp B/P (MAP) Pulse Ox O2 Delivery O2 Flow Rate FiO2 02/24/18 05:54 96.8 72 18 136/94 (108) 100 Room Air 02/23/18 23:38 97.7 76 18 136/89 (105) 100 Room Air 02/23/18 17:00 98.3 67 16 135/87 (103) 100 Room Air 02/23/18 12:30 98.0 72 20 128/86 (100) 100 Room Air 02/23/18 09:45 98.4 81 16 128/86 (100) 100 Room Air KIM BAXTER DO Feb 24, 2018 9:15 am
[2018-02-24] MEDS: PRENATAL VITAMIN 1 EA TAB PO SCH (09:23)
[2018-02-24] MEDS: FERROUS SULF 325 MG (IRON) TAB PO SCH (09:24)
[2018-02-24] MEDS: DOCUSATE SODIUM 100 MG (COLACE) CAP PO SCH (09:24)
[2018-02-24 12:45] VITALS: BP 128/85
[2018-02-24 18:00] VITALS: BP 135/87
[2018-02-24 20:00] VITALS: BP 135/87
== END 2018-02-24 20:00 | disposition home or self-care (01) | DRG 775 ==
LOC: LDRP 18:45
PROVIDERS: ADMIT Obstetrics & Gynecology; ATTEND Obstetrics & Gynecology
PROC: 10E0XZZ Delivery of Products of Conception, External Approach (ICD-10-PCS; principal; 2018-02-22)
PROC: 0W8NXZZ Division of Female Perineum, External Approach (ICD-10-PCS; 2018-02-22)
DX: O41.03X0 Oligohydramnios, third trimester, not applicable or unspecified (principal); O28.9 Unspecified abnormal findings on antenatal screening of mother; Z3A.38 38 weeks gestation of pregnancy; Z37.0 Single live birth
CPT/HCPCS: 36415; 83033; 85025; 86850; 86900; 86901

== ENCOUNTER → 2020-07-09 | Outpatient (CLI) | payer OTHER ==
[~2020-07-09] MED LIST changes: +ACHD5005 PO; +Benzocaine/Menthol TP; +DIBU30OI TOP; +DOCU100C37 PO; +FERR325T18 PO; +IBUP-1773 PO; +PNV1TABL67 PO
--- NOTE | 2020-07-10 11:15 | Diagnostic Imaging Report ---
INDICATION: survey. TECHNIQUE: Multiple real-time grayscale images were obtained over the gravid uterus. COMPARISON: None FINDINGS: There is a single live fetus in a cephalic presentation. heart rate was recorded at 136 bpm. Placenta is posterior. Amniotic fluid index is 13.3 cm. Cervical length is 5.5 cm. survey demonstrates kidneys, bladder and stomach to be unremarkable. brains are unremarkable. The four-chambered heart view is limited. Cord insertion is also somewhat limited due to position and maternal body habitus. There is a three-vessel cord present. spine is unremarkable. Biometrical measurements are as follows: Biparietal 4.83 cm, age 20 weeks 5 days. Head circumference 18.13 cm, age 20 weeks 4 days. Abdominal circumference 14.92 cm, age 20 weeks 2 days. Femur length 3.53 cm, age 21 weeks 2 days. Sonographic estimate age: 20 weeks 5 days. Sonographic estimated date of delivery: 11/21/2020. Estimated Weight: 366 gm (+/- 53 gm). LMP percentile: 72%. heart rate: 136 beats per minute. number: 1 of 1. IMPRESSION: Single live IUP 20 weeks 5 days gestational age with estimated date of confinement sonographically of 11/21/2020. survey is unremarkable, although the four-chamber heart view, cord insertion as well as nose and lips evaluation was limited due to position and maternal body habitus. Dictated by: Dictated on workstation # [id number]
== END ==
LOC: RAD 11:36
PROVIDERS: ATTEND Nurse Practitioner Women's Health
DX: Z34.92 Encounter for supervision of normal pregnancy, unspecified, second trimester (principal); Z3A.20 20 weeks gestation of pregnancy
CPT/HCPCS: 76805

== ENCOUNTER 2020-11-18 06:15 | Inpatient (IN) | payer OTHER ==
[~2020-11-18] VITALS: Ht 177.9 cm; Wt 130.9 kg
[2020-11-18] VITALS (38 sets, daily range): BP systolic 122–190; BP diastolic 58–101
--- NOTE | 2020-11-18 06:22 | NUR ---
SUSAN TOUSSAINT presented to unit via ambulation from ED, accompanied by s.o. for induction of labor. SUSAN TOUSSAINT weighed, gowned, voided, and to bed. EFHM and TOCO applied, VS taken. SUSAN TOUSSAINT oriented to bed controls, call light, TV, heat, and A/C controls.
--- NOTE | 2020-11-18 07:49 | History & Physical-OB ---
OB - Chief Complaint & HPI Date/Time Date of Admission: Date of Admission: Nov 18, 2020 at 06:15 Date seen by a Provider: Nov 18, 2020 Time Seen by a Provider: 07:45 Chief Complaint/History OB-Reason for Admission/Chief: Induction of Labor Hx : 2 Hx Para: 1 Expected Date of Delivery: Nov 25, 2020 Gestational Age in Weeks: 39 Gestational Age in Days: 0 Admission Nurse Assessment Rev: Yes History of Labs Abnormal quad, normal FFC DNA Allergies and Home Medications Allergies Coded Allergies: No Known Drug Allergies (Verified , 07/11/09) Home Medications Dibucaine 30 Gm Oint, 0 GM TOP UD PRN for PAIN- SEE INSTRUCTIONS Prescribed by: KIM BAXTER on 02/23/18721 Docusate Sodium 100 Mg Capsule, 100 MG PO BID PRN for CONSTIPATION-1ST LINE Prescribed by: KIM BAXTER on 02/23/18721 Ferrous Sulfate 325 Mg Tablet, 325 MG PO DAILY@0700 Prescribed by: KIM BAXTER on 02/23/18721 Hydrocodone Bit/Acetaminophen 1 Tab Tab, 1-2 TAB PO Q4H PRN for PAIN-MODERATE Prescribed by: KIM BAXTER on 02/23/18721 Ibuprofen 600 Mg Tablet, 600 MG PO Q6H Prescribed by: KIM BAXTER on 02/23/18721 Pnv with Ca,No.72/Iron/FA 1 Each Tablet, 1 EA PO DAILY@0700 Prescribed by: KIM BAXTER on 02/23/18721 [Benzocaine/Menthol] 56 ML AEROSOL, 56 ML TP UD PRN for PAIN- SEE INSTRUCTIONS EXTERNAL USE ONLY Prescribed by: KIM BAXTER on 02/23/18721 Patient Home Medication List Home Medication List Reviewed: Yes OB - History Hx of Present Care: Yes Ultrasounds: Normal mid trimester US Obstetrical Complications: None Medical Complications: None Delivery History Adverse Rxn to Tranfusion: No Patient Past Medical History n/a Social History/Family History HIV/AIDS: Yes Sexually Transmitted Disease: No Immunizations Hepatitis A: Yes Hepatitis B: Yes OB - Admission Exam Physical Exam HEENT: NCAT Heart: Rhythm Normal Lungs: Clear Abdomen: Gravid Extremities: Normal Reflexes: Normal Cervical Dilatation: 3cm Effacement: 75% Station: 0 Membranes: Intact Heart Rate: 130's Accelerations: Accelerations Present Decelerations: No Decelerations Short Term Variability: Present Geospatial Developer Variability: Average (6-25) Contractions on Admission: 6-10 Minutes Apart Intensity: Mild OB - Assessment/Plan/Diagnosis Assessment Assessment: induction of labor Admission Dx 35 yo @ 39 weeks AMA Abnormal quad, normal FFC DNA GHTN Admission Status: Inpatient Order (span 2 midnights) Reason for Inpatient Admission: IOL at 39 weeks Plan Plan: Induction Induction Method: per Pitocin Protocol KIM BAXTER DO Nov 18, 2020 07:49
[2020-11-18] MEDS ORDERED: D5 LR IV SOLUTION 1,000 ML IV SCH (08:15)
[2020-11-18] MEDS ORDERED: LIDOCAINE/EPI 2% 1:200,00 (XYLOCAINE) 10 ML VIAL INJ PRN (08:15)
[2020-11-18] MEDS ORDERED: MINERAL OIL CONCENTRATE 99.9% 15 ML UDC TOP PRN (08:15)
[2020-11-18] MEDS ORDERED: D5 LR IV SOLUTION 1,000 ML IV ONE (08:18)
[2020-11-18] MEDS ORDERED: OXYTOCIN PRE-MIX DRIP 500 ML IV ONE (08:18)
[2020-11-18 08:23] LABS: BASOPHILS % (AUTO) 0 % (0-10); EOSINOPHILS # (AUTO) 0.1 10^3/uL (0.0-0.3); EOSINOPHILS % (AUTO) 1 % (0-10); HEMATOCRIT 38 % (35-52); HEMOGLOBIN 12.9 g/dL (11.5-16.0); LYMPHOCYTES # (AUTO) 1.6 10^3/uL (1.0-4.0); LYMPHOCYTES % (AUTO) 17 % (12-44); MEAN CORPUSCULAR HEMOGLOBIN 29 pg (25-34); MEAN CORPUSCULAR HGB CONC 34 g/dL (32-36); MEAN CORPUSCULAR VOLUME 85 fL (80-99); MEAN PLATELET VOLUME 11.9 fL (9.0-12.2); MONOCYTES # (AUTO) 0.5 10^3/uL (0.0-1.0); MONOCYTES % (AUTO) 5 % (0-12); NEUTROPHILS # (AUTO) 7.1 10^3/uL (1.8-7.8); NEUTROPHILS % (AUTO) 76 % (42-75); PLATELET COUNT 190 10^3/uL (130-400); WHITE BLOOD COUNT 9.3 10^3/uL (4.3-11.0)
[2020-11-18 08:24] LABS: CLARITY,URINE SL CLOUDY; COLOR,URINE AMBER; GLUCOSE, URINE (UA) NEGATIVE (NEGATIVE); KETONES,URINE TRACE (NEGATIVE); LEUKOCYTE ESTERASE ,URINE 2+ (NEGATIVE); NITRITE,URINE NEGATIVE (NEGATIVE); PH,URINE 6.5 (5-9); PROTEIN,URINE 2+ (NEGATIVE)
[2020-11-18] MEDS: OXYTOCIN PRE-MIX DRIP 500 ML IV SCH ×2 (08:34→13:45)
[2020-11-18 08:36] LABS: AMORPHOUS SEDIMENT,UR FEW AMOR URATES /LPF; BACTERIA,URINE FEW /HPF; BILIRUBIN,URINE 1+ (NEGATIVE); WBC,URINE 50-100 /HPF; YEAST,URINE FEW /HPF
[2020-11-18 08:38] LABS: CALCIUM OXALATE CRYSTALS,UR MODERATE /LPF
[2020-11-18] MEDS ORDERED: fentaNYL 2 mcg/ml BUPIVA 0.125 100 ML ONE (09:30)
[2020-11-18] MEDS ORDERED: BUPIVACAINE 0.25% 30 ML (SENSORCAINE) VIAL ONE (10:07)
[2020-11-18] MEDS ORDERED: fentaNYL INJECTION 100 MCG/2 ML AMP ONE (10:07)
[2020-11-18] MEDS ORDERED: ONDANSETRON 4 MG/2 ML (SDV) Z0FRAN IV PRN (10:15)
[2020-11-18] MEDS ORDERED: LACTATED RINGERS 1,000 ML IV ONE (10:15)
[2020-11-18] MEDS ORDERED: NALOXONE 0.4 MG/ML 1 ML (NARCAN) VIAL IV PRN (10:15)
[2020-11-18] MEDS ORDERED: diphenhydrAMINE 50 MG/ML INJ (BENADRYL) IV PRN (10:15)
[2020-11-18] MEDS ORDERED: CATHETER FLUSH 10 ML SYR IV PRN (10:15)
[2020-11-18] MEDS ORDERED: fentaNYL 2 mcg/ml BUPIVA 0.125 100 ML IV SCH (10:15)
--- NOTE | 2020-11-18 10:20 | NUR ---
here for epidural placement. Procedure explained, consent reviewed and signed by anesthesia. Questions answered to patient's satisfaction. Time out taken to verify correct patient/procedure. Patient up to side of bed, assisted into sitting position. Betadine prep done x3 and sterile drape applied. Local done, see anesthesia record. Test dose given, see anesthesia record for drug and dosage. Epidural catheter secured in place. Epidural placement complete. Assisted back into bed, monitors adjusted. Epidural dosed, see anesthesia record. Epidural of Sufenta/Bupvicaine @__12____cc/hr stated per pump. Patient tolerated procedure well.
[2020-11-18] MEDS ORDERED: BENZOCAINE/MENTHOL (DERMOPLAST) 60 ML CAN TP ONE (12:31)
[2020-11-18] MEDS ORDERED: IBUPROFEN 600 MG (MOTRIN) TAB PO ONE (13:34)
[2020-11-18] MEDS ORDERED: OXYTOCIN PRE-MIX DRIP 500 ML IV SCH (13:45)
[2020-11-18] MEDS ORDERED: MEASLES,MUMPS,RUBELLA 1 EA INJ SQ ONE (13:45)
[2020-11-18] MEDS ORDERED: BENZOCAINE/MENTHOL (DERMOPLAST) 60 ML CAN TP PRN (13:45)
[2020-11-18] MEDS ORDERED: TETANUS,DIPTH,PERTUSS P/F (BOOSTRIX) 0.5 ML VIAL IM ONE (13:45)
[2020-11-18] MEDS ORDERED: WITCH HAZEL(TUCKS) 40 EA JAR TOP PRN (13:45)
[2020-11-18] MEDS ORDERED: HYDROcodone/APAP 5 MG/325 MG (LORTAB) TAB PO PRN (13:45)
[2020-11-18] MEDS: IBUPROFEN 600 MG (MOTRIN) TAB PO SCH ×2 (13:46→19:38)
--- NOTE | 2020-11-18 13:46 | OB Labor & Delivery Record ---
L&D History Date of Service Date of Service: Nov 18, 2020 History Expected Date of Delivery: Nov 25, 2020 Gestational Age in Weeks: 39 Hx : 2 Hx Para: 1 Complications Events: Routine care Operative Indications (Cesarea: N/A-Vaginal Delivery Intrapartal Events: None L&D Stage1 Stage One Onset of Labor - Date: Nov 18, 2020 Monitors and Tracing Monitor Mode: External Heart Rate: 115 Monitor Accelerations: Uniform Monitor Decelerations: None Station: -3 Nursing Home Variability: Average (6-10) Short Term Variability: Present Presentation: Vertex Vital Signs VS - Last 72 Hours, by Label 11/18/20 11/18/20 11/18/20 11/18/20 07:30 08:00 08:30 08:45 Temp 36.8 Pulse 85 82 88 84 Resp 20 20 20 20 B/P (MAP) 185/101 (129) 143/94 (110) 164/84 (110) 167/82 (110) Pulse Ox 100 100 100 100 O2 Delivery Room Air Room Air Room Air Room Air 11/18/20 11/18/20 11/18/20 11/18/20 09:00 09:15 09:19 09:30 Temp 36.8 Pulse 77 78 83 77 Resp 20 20 18 20 B/P (MAP) 168/89 (115) 160/90 (113) 172/93 (119) Pulse Ox 100 100 100 100 O2 Delivery Room Air Room Air Room Air Room Air Rupture of Membranes Spontaneous Ruture of Membrane: No Amniotic Membrane Rupture Time: 0826 Amniotic Membrane Fluid Desc.: Clear Vaginal Bleeding Description: Normal Show Induction/Anesthesia Epidural Cath Placement - Time: 1043 Progress/Notes Patient admitted for IOL, AROM and Pitocin augmentation used to max dose of 8 mu. She progressed complete and +2 station after receiving epidural. L&D Stage2 Stage Two Stage II Date: Nov 18, 2020 Monitors and Tracing Monitor Mode: External Heart Rate: 115 Monitor Accelerations: Uniform Monitor Decelerations: Variable Imaging Analyst Variability: Average (6-10) Short Term Variability: Present Position: Right Occiput Posterior Presentation: Vertex Cord Descript/Complications Cord Vessel Description: 3 Vessels Delivery Type Infant Delivery Method: Spontaneous Vaginal Anterior Shoulder: Left Episiotomy/Perineal Laceration Laceraction(s)/Extensions: Yes Episiotomy Description: 2nd degree Degree (describe repair) 2nd degree perineal laceration repaired using 3-0 and 2-0 vicryl suture in usual fashion. Condition of Delivery 1 minute Comment: 8 5 minute Comment: 9 Notes Live female weight 7lbs 6 oz. Condition of Condition of Infant: Living Exam: No Observed Abnormalities Resuscitation Resuscitation: N/A - Spontaneous Resp L&D Stage3 Stage Three Stage III Date: Nov 18, 2020 Pictocin Pitocin Administration mu/min: 4 Pitocin ml/hr: 4 Pitocin Administration Comment: 30 mu wide open at delivery of placenta Placenta Delivery Placenta Delivery: Spontaneous Delivery Summary Summary Estimated blood loss (mL): 400 Attending at delivery: Kim Baxter DO. Condition of Delivery Examined: Cervix Examined, Uterus Explored Post Hemorrhage: No Condition of Mother stable Condition of (s) stable KIM BAXTER DO Nov 18, 2020 1:46 pm
--- NOTE | 2020-11-18 13:46 | NUR ---
SCHEDULED MOTRIN GIVEN PO, PITOCIN UP 125ML/HR. FFU/2 LT LOCHIA NOTED.
[2020-11-18] MEDS ORDERED: CATHETER FLUSH 10 ML SYR IV SCH ×2 (14:00)
--- NOTE | 2020-11-18 15:57 | NUR ---
PT'S RIGHT LEG STILL TINGLING, PERICARE WITH RN ASSISTANCE, MOD LOCHIA NOTED, FFU/2. PT TRANSFERRED TO ROOM 3311 BY WC WITH RN ASSIST. PLAN OF CARE REVIEWED WITH PT/SO, NO QUESTIONS NOTED, INFANT IN MOTHERS ARMS, WILL MONITOR CLOSELY.
[2020-11-18] MEDS: DOCUSATE SODIUM 100 MG (COLACE) CAP PO SCH (19:38)
[2020-11-19 01:43] VITALS: BP 135/83
[2020-11-19] MEDS: IBUPROFEN 600 MG (MOTRIN) TAB PO SCH ×3 (01:44→16:26)
[2020-11-19 05:46] LABS: BASOPHILS # (AUTO) 0.1 10^3/uL (0.0-0.1); BASOPHILS % (AUTO) 0 % (0-10); EOSINOPHILS # (AUTO) 0.1 10^3/uL (0.0-0.3); EOSINOPHILS % (AUTO) 1 % (0-10); HEMATOCRIT 35 % (35-52); HEMOGLOBIN 11.7 g/dL (11.5-16.0); LYMPHOCYTES % (AUTO) 18 % (12-44); MEAN CORPUSCULAR HEMOGLOBIN 29 pg (25-34); MEAN CORPUSCULAR HGB CONC 34 g/dL (32-36); MEAN CORPUSCULAR VOLUME 85 fL (80-99); MEAN PLATELET VOLUME 11.5 fL (9.0-12.2); MONOCYTES # (AUTO) 0.6 10^3/uL (0.0-1.0); MONOCYTES % (AUTO) 5 % (0-12); NEUTROPHILS # (AUTO) 8.4 10^3/uL (1.8-7.8); NEUTROPHILS % (AUTO) 75 % (42-75); PLATELET COUNT 156 10^3/uL (130-400); WHITE BLOOD COUNT 11.2 10^3/uL (4.3-11.0)
[2020-11-19] MEDS ORDERED: PRENATAL VITAMIN 1 EA TAB PO SCH (07:00)
--- NOTE | 2020-11-19 08:08 | Postpartum Progress Note ---
Note Note Day # 1 Subjective: Patient is without complaints. Ambulating, voiding. Tolerating a regular diet without nausea or vomiting. Normal lochia. Pain is well controlled with oral pain medications. Objective: Physical Exam: General - Alert and oriented, no apparent distress Abdomen - Soft, appropriately tender to palpation, non-distended, fundus firm at umbilicus Extremities - no edema, negative Pao's bilaterally Assessment: PPD 1 NVD Plan: Routine care. Encourage breast feeding. Encourage ambulation. Ferrous sulfate supplementation. Plan for discharge today Vitals - Labs Vital Signs - I&O Vital Signs Date Time Temp Pulse Resp B/P (MAP) Pulse Ox O2 Delivery O2 Flow Rate FiO2 11/19/20 01:43 37.0 85 20 135/83 (100) 99 Room Air 11/18/20 20:40 158/83 (108) 11/18/20 19:44 36.8 74 20 171/82 (111) 100 Room Air 11/18/20 15:57 36.8 84 20 157/78 (104) 11/18/20 15:14 69 20 152/73 (99) 11/18/20 14:59 74 20 154/64 (94) 11/18/20 14:44 77 20 154/73 (100) 11/18/20 14:29 71 20 165/71 (102) 11/18/20 14:14 81 20 152/70 (97) 11/18/20 13:59 36.7 78 20 162/70 (100) 11/18/20 13:45 82 20 136/73 (94) 11/18/20 13:25 84 20 150/71 (97) 11/18/20 13:00 103 20 152/68 (96) 11/18/20 12:45 97 20 156/69 (98) 11/18/20 12:30 36.6 78 20 131/75 (93) 100 Room Air 11/18/20 12:15 77 20 137/76 (96) 100 Room Air 11/18/20 12:00 85 20 135/66 (89) 100 Room Air 11/18/20 11:45 79 20 122/58 (79) 100 Room Air 11/18/20 11:30 82 20 128/63 (84) 100 Room Air 11/18/20 11:15 82 20 136/84 (101) 100 Room Air 11/18/20 11:00 93 20 139/64 (89) 99 Room Air 11/18/20 10:50 90 20 146/70 (95) 99 Room Air 11/18/20 10:47 36.5 85 20 159/74 (102) 99 Room Air 11/18/20 10:44 75 20 160/71 (100) 99 Room Air 11/18/20 10:41 74 20 164/78 (106) 100 Room Air 11/18/20 10:38 85 20 175/86 (115) 100 Room Air 11/18/20 10:35 89 20 167/85 (112) 100 Room Air 11/18/20 10:30 36.7 74 20 172/86 (114) 100 Room Air 11/18/20 10:15 83 20 181/95 (123) 100 Room Air 11/18/20 10:00 78 20 169/77 (107) 100 Room Air 11/18/20 09:45 84 20 190/90 (123) 100 Room Air 11/18/20 09:30 77 20 172/93 (119) 100 Room Air 11/18/20 09:19 36.8 83 18 100 Room Air 11/18/20 09:15 78 20 160/90 (113) 100 Room Air 11/18/20 09:00 77 20 168/89 (115) 100 Room Air 11/18/20 08:45 84 20 167/82 (110) 100 Room Air 11/18/20 08:30 88 20 164/84 (110) 100 Room Air I & O 11/19/20 07:00 Intake Total 3042 ml Balance 3042 ml Labs Laboratory Tests 11/19/20 05:25: White Blood Count 11.2H, Red Blood Count 4.06, Hemoglobin 11.7, Hematocrit 35, Mean Corpuscular Volume 85, Mean Corpuscular Hemoglobin 29, Mean Corpuscular Hemoglobin Concent 34, Red Cell Distribution Width 14.2, Platelet Count 156, Mean Platelet Volume 11.5, Immature Granulocyte % (Auto) 1, Neutrophils (%) (Auto) 75, Lymphocytes (%) (Auto) 18, Monocytes (%) (Auto) 5, Eosinophils (%) (Auto) 1, Basophils (%) (Auto) 0, Neutrophils # (Auto) 8.4H, Lymphocytes # (Auto) 2.0, Monocytes # (Auto) 0.6, Eosinophils # (Auto) 0.1, Basophils # (Auto) 0.1, Immature Granulocyte # (Auto) 0.1 KIM BAXTER DO Nov 19, 2020 08:08
[2020-11-19] MEDS ORDERED: IBUP-844 PO (08:09)
[2020-11-19] MEDS ORDERED: ACHD5005 PO (08:09)
[2020-11-19] MEDS ORDERED: BENZ78AE5 TP (08:09)
[2020-11-19] MEDS ORDERED: DCS100C PO (08:09)
--- NOTE | 2020-11-19 08:10 | Discharge Inst-Women's Service ---
Discharge Inst-Women's Serv Depart Medication/Instructions New, Converted or Re-Newed RX: RX on Chart Final Diagnosis PPD 1 NVD Problems Reviewed?: Yes Consults/Follow Up Additional Follow Up: Yes Orders/Referrals Dr. Baxter in 6 weeks Activity Activity: Activity as Tolerated Driving Instructions: No Driving for 1 Week NO SMOKING: NO SMOKING Nothing Inside Vagina: No Douching, No [place], No Tampons Diet Discharge Diet: No Restrictions Symptoms to Report to : Bleeding Excessive, Pain Increased, Fever Over 101 Degrees F, Vaginal Bleeding Increase, Questions/Concerns For Any Problems or Questions: Contact Your Physician KIM BAXTER DO Nov 19, 2020 08:10
--- NOTE | 2020-11-19 08:55 | Anesthesia-Regional Post-Op ---
Regional Patient Condition Mental Status: Alert, Oriented x3 Circulation: Same as Pre-Op Headache: Absent Sensation: Full Recovery Motor Block: Absent Post Op Complications Complications None Follow Up Care/Instructions Patient Instructions None needed. Anesthesia/Patient Condition Patient is doing well, no complaints, stable vital signs, no apparent adverse anesthesia problems. No complications reported per nursing. D/C home per [facility] [place] Criteria: GÓMEZ Henley CRNA Nov 19, 2020 08:55
[2020-11-19 09:00] VITALS: BP 168/80
[2020-11-19] MEDS ORDERED: FERROUS SULF 325 MG (IRON) TAB PO SCH (09:00)
--- NOTE | 2020-11-19 09:00 | NUR ---
initial shift assessment completed, see interventions for further.
[2020-11-19] MEDS: DOCUSATE SODIUM 100 MG (COLACE) CAP PO SCH (09:01)
--- NOTE | 2020-11-19 13:15 | NUR ---
stork meal served.
[2020-11-19 16:25] VITALS: BP 158/90
--- NOTE | 2020-11-19 16:32 | NUR ---
dismissal instructions given, verbalizes understanding. reviewed follow up appointments and Rx's. signature page signed, placed on chart.
--- NOTE | 2020-11-19 16:34 | NUR ---
Rhogam IM given in Rt.GM.
--- NOTE | 2020-11-19 17:55 | NUR ---
pt ambulated to private vehicle with this RN and @ side. infant secured in rear facing car seat. pt stable with no sx's of distress noted.
== END 2020-11-19 17:55 | disposition home or self-care (01) | DRG 807 ==
LOC: LDRP 06:15
PROVIDERS: ADMIT Obstetrics & Gynecology; ATTEND Obstetrics & Gynecology
PROC: 10E0XZZ Delivery of Products of Conception, External Approach (ICD-10-PCS; principal; 2020-11-18)
PROC: 0KQM0ZZ Repair Perineum Muscle, Open Approach (ICD-10-PCS; 2020-11-18)
PROC: 10907ZC Drainage of Amniotic Fluid, Therapeutic from Products of Conception, Via Natural or Artificial Opening (ICD-10-PCS; 2020-11-18)
DX: O13.4 Gestational [pregnancy-induced] hypertension without significant proteinuria, complicating childbirth (principal); Z37.0 Single live birth; Z3A.39 39 weeks gestation of pregnancy; O70.1 Second degree perineal laceration during delivery; Z20.828 Contact with and (suspected) exposure to other viral communicable diseases
CPT/HCPCS: 36415; 81000; 83033; 85025; 86850; 86900; 86901; 87088; 87635